=== PATIENT | female | born 1985 | race Caucasian/White ===

== ENCOUNTER 2017-11-25 17:25 | Outpatient (REF) | payer MEDICAID, SELFPAY ==
[2017-11-25 22:14] LABS: Bilirubin Negative (Negative); Blood Negative (Negative); Clarity Clear; Glucose Negative (Negative); Ketones Negative (Negative); Leukocyte Esterase Small (Negative); Nitrite Negative (Negative); Specific Gravity 1.015 (1.005-1.025)
[2017-11-25 22:24] LABS: RBC 0-2 (0-2)
[2017-11-25 22:25] LABS: Bacteria Rare HPF (Negative); C & S Indicated? No/Sq. Contamination; Casts Negative LPF (Negative); Crystals Negative HPF (Negative); Epithelial Cells Many HPF (Negative); Mucus Negative (Negative); Other Cells Moderate Yeast (Negative)
[2017-11-28 14:25] LABS: Chlamydia Result Negative; GC Result Negative
== END 2017-11-25 17:45 ==
LOC: NCHCN 17:25
PROVIDERS: PCP General Practice; Visit Provider Obstetrics & Gynecology
DX: R30.0 Dysuria (principal); N89.8 Other specified noninflammatory disorders of vagina
CPT/HCPCS: 87491; 87591; 81003; 81015

== ENCOUNTER 2017-12-13 16:37 | Emergency (ER) | payer MEDICAID, SELFPAY ==
[2017-12-13 16:43] VITALS: BP 112/76; PULSE 78; RESP 16; TEMP 36.7; O2SAT 98
[2017-12-13 17:09] LABS: Bilirubin Negative (Negative); Blood Moderate (Negative); Clarity Clear; Glucose Negative (Negative); Ketones Negative (Negative); Leukocyte Esterase Large (Negative); Nitrite Negative (Negative); Specific Gravity >= 1.030 (1.005-1.025); Urobilinogen 0.2 EU/dL (Up TO 0.2); pH 5.5 (5-8)
[2017-12-13 17:21] LABS: Epithelial Cells Few HPF (Negative); WBC >50 HPF (0-5)
[2017-12-13 17:22] LABS: Bacteria Few HPF (Negative); Casts Negative LPF (Negative); Crystals Negative HPF (Negative); Mucus Trace (Negative)
--- NOTE | 2017-12-13 17:25 | ED.GENADUL_ITS ---
Discharge Plan Disposition Patient Disposition: HOME Condition: Improving Discharge Details Chief Complaint: Urinary Clinical Impression: UTI (urinary tract infection) Primary Care Provider: Russell Holder ED Provider: Erasto Queen Home Meds and New Rx's Prescriptions: New sulfamethoxazole-trimethoprim [Bactrim DS] 800-160 mg tablet 160 mg PO BID 7 Days Qty: 14 RF: 0 phenazopyridine [Pyridium] 100 mg tablet 100 mg PO TID PRN (Reason: urinary pain) 0 Days RF: 0 fluconazole [Diflucan] 150 mg tablet 150 mg PO ONCE PRN (Reason: yeast infection) Qty: 1 RF: 0 Continue doxepin 75 MG capsule 75 mg PO HS Qty: 30 RF: 5 sertraline 100 MG tablet 150 mg PO HS RF: 0 albuterol sulfate [ProAir HFA] 8.5 GM HFA aerosol inhaler 2 puff Inhalation Q4H PRN Qty: 1 RF: 5 omeprazole 20 MG capsule,delayed release(DR/EC) 20 mg PO DAILY Qty: 90 RF: 3 topiramate 25 mg tablet 150 mg PO BID RF: 0 Discharge Instructions Instructions: Urinary Tract Infection in Women (ED) Additional Instructions: Please take medications as prescribed. As we discussed, please use the Diflucan if needed for antibiotic-induced vaginal yeast infection. Return to emerge part for fever, vomiting, or any other concerns. Routine care with Dr. Holder. Medical Decision Making Healthy 32-year-old female presents with 1 day of dysuria. She is afebrile and well-appearing with a reassuring exam. Her history and urinalysis are consistent with acute cystitis. She stable for outpatient management with oral antibiotics and Pyridium. She has had antibiotic associated yeast infections in the past and I will prescribe her a one-time dose of Diflucan to be used as needed. She understands return precautions to the ED. Lab Data Lab results reviewed: Yes I reviewed the patient's lab results. 12/13/17 17:01 Urine - Reflex from Ua Urine Culture - Pending Laboratory Tests Range/Units 12/13/17 17:01 Urine Color (Yellow) Yellow Urine Clarity Clear Urine pH (5-8) 5.5 Ur Specific Victoria (1.005-1.025) >= 1.030 H Urine Protein (Negative) mg/dL 100 H Urine Ketones (Negative) mg/dL Negative Urine Blood (Negative) Moderate H Urine Nitrite (Negative) Negative Urine Bilirubin (Negative) Negative Urine Urobilinogen (Up TO 0.2) EU/dL 0.2 Ur Leukocyte Esterase (Negative) Large H Urine RBC (0-2) 10-20 H Urine WBC (0-5) HPF >50 Ur Epithelial Cells (Negative) HPF Few Urine Crystals (Negative) HPF Negative Urine Bacteria (Negative) HPF Few Urine Casts (Negative) LPF Negative Urine Mucus (Negative) Trace Ur Culture Indicated? Yes Urine Glucose (Negative) mg/dL Negative HPI General Mode of arrival: ambulatory . Date/Time Provider Initiated Documentation: 12/13/17 16:38 . Limitations to Documentation: no limitations . Information obtained by: patient . History of Present Illness 32 year old F presents to the emergency department with the chief complaint of UTI, described as moderate, Quality is described as burning, and is localized to the pelvis. Patient started experiencing this hour(s) and it has been constant. No relieving factors improve symptom(s), No exacerbating factors reported . Patient notes no other symptoms.. HPI Narrative: 32-year-old female with a day of urinary urgency, frequency, burning sensation. No fever, chills, nausea, vomiting. Has had no vaginal discharge or bleeding she states that she had a normal menses last week Related Data Home Medications Medication Instructions Recorded Confirmed doxepin 75 mg PO HS #30 tab-cap 03/17/16 12/13/17 sertraline 150 mg PO HS tab-cap 07/09/16 12/13/17 albuterol sulfate [ProAir HFA] 2 puff INHALATION Q4H PRN #1 01/13/17 12/13/17 inhaler omeprazole 20 mg PO DAILY #90 capsule. 08/16/17 12/13/17 topiramate 25 mg tablet 150 mg PO BID tab 11/25/17 12/13/17 fluconazole [Diflucan] 150 mg PO ONCE PRN #1 tab 12/13/17 phenazopyridine [Pyridium] 100 mg PO TID PRN 0 Days tab 12/13/17 sulfamethoxazole-trimethoprim 160 mg PO BID 7 Days #14 tab 12/13/17 [Bactrim DS] Previous Rx's Medication Instructions Recorded albuterol sulfate [ProAir HFA] 2 puff INHALATION Q4H PRN #1 01/13/17 inhaler omeprazole 20 mg PO DAILY #90 capsule. 08/16/17 fluconazole [Diflucan] 150 mg PO ONCE PRN #1 tab 12/13/17 phenazopyridine [Pyridium] 100 mg PO TID PRN 0 Days tab 12/13/17 sulfamethoxazole-trimethoprim 160 mg PO BID 7 Days #14 tab 12/13/17 [Bactrim DS] Allergies Allergy/AdvReac Type Severity Reaction Status Date / Time latex Allergy Skin Rash Unverified 11/25/17 14:46 adhesive AdvReac Skin Rash Unverified 11/25/17 14:46 General Stated Complaint: Urinary REKHA: 4 Review of Systems Review of Systems 6 systems reviewed and otherwise negative PFSH Family History Mother Mental disorder Asthma Father Diabetes Mental disorder Medical History BMI 34.0-34.9,adult Depression GERD (gastroesophageal reflux disease) Restless leg syndrome Tobacco use Social History Smoking/Tobacco Use Status: Current every day Surgical History Arthroplasty of knee section (05/28/16) Ligation of fallopian tube (07/21/16) Reduction mammoplasty Female Reproductive History Menstrual control method: permanent sterilization Ab spontaneous: 2 Exam Narrative Exam Narrative: GEN: awake, alert, oriented 3. Pleasant, well groomed, interactive. HEAD: Normocephalic, atraumatic ENT: Mucous membranes moist, oropharynx unremarkable, External ear exam unremarkable EYES: PERRL, EOMI NECK: Full ROM, no RUPALI, no menigismus CHEST/RESP: Nontender, clear to auscultation bilateral, no wheeze/rhonchi/rales CARDIOVASCULAR: RRR, no murmur, rub leigha. 2+ Rad pulse bilateral ABDOMEN: Soft, minimal suprapubic tenderness without rebound or guarding, no mass. +Bowel sounds EXT: Full ROM, no edema, no rash Neuro: Grossly normal neurologic exam, conversant, interactive. Psych: Speech fluent, thoughts congruent, affect normal Course Vital Signs Temperature 36.7 C 10/02/18 16:43 Pulse 78 12/13/17 16:43 Respiratory Rate 16 12/13/17 16:43 Blood Pressure 112/76 12/13/17 16:43 Pulse Oximetry 98 12/13/17 16:43 Temperature 36.7 C 12/13/17 16:43 Temperature Source Temporal Artery Scan 12/13/17 16:43 Pulse 78 12/13/17 16:43 Respiratory Rate 16 12/13/17 16:43 Respiratory Effort 12/13/17 16:46 Blood Pressure 112/76 12/13/17 16:43 Blood Pressure Position Sitting 12/13/17 16:43 Pulse Oximetry 98 12/13/17 16:43 Oxygen Delivery Method Room Air 12/13/17 16:43 Oxygen Flow Rate 0 12/13/17 16:43 Lab/Test Results Lab/Test Results: Laboratory Tests Range/Units 12/13/17 17:01 Urine Color (Yellow) Yellow Urine Clarity Clear Urine pH (5-8) 5.5 Ur Specific Victoria (1.005-1.025) >= 1.030 H Urine Protein (Negative) mg/dL 100 H Urine Ketones (Negative) mg/dL Negative Urine Blood (Negative) Moderate H Urine Nitrite (Negative) Negative Urine Bilirubin (Negative) Negative Urine Urobilinogen (Up TO 0.2) EU/dL 0.2 Ur Leukocyte Esterase (Negative) Large H Urine Glucose (Negative) mg/dL Negative
[2017-12-13 17:29] LABS: C & S Indicated? Yes
[2017-12-13 17:35] VITALS: BP 112/76; PULSE 78; RESP 16; TEMP 36.7; O2SAT 98
== END 2017-12-13 17:43 | disposition home or self-care (01) ==
PROVIDERS: Emergency Provider Emergency Medicine; PCP General Practice
DX: N39.0 Urinary tract infection, site not specified (principal)
CPT/HCPCS: 99283; 81003; 81015; 87086

== ENCOUNTER 2018-05-06 09:58 | Emergency (ER) | payer MEDICAID, SELFPAY ==
[2018-05-06 10:15] VITALS: BP 121/61; PULSE 76; RESP 16; TEMP 36.5; O2SAT 97
--- NOTE | 2018-05-06 10:27 | W.ED.GENAD ---
Discharge Plan Disposition Patient Disposition: HOME Condition: Stable Discharge Details Chief Complaint: Nausea/Vomit/Diar Clinical Impression: Diarrhea Primary Care Provider: Russell Holder ED Provider: Erasto Queen Home Meds and New Rx's Prescriptions: New loperamide 2 mg tablet 2 mg PO Q6H PRN PRN (Reason: loose stool) Qty: 10 RF: 0 Continued fluconazole 100 mg tablet 100 mg PO DAILY PRN (Reason: postcoital UTI) Qty: 20 RF: 0 doxepin 75 MG capsule 75 mg PO HS Qty: 30 RF: 5 sertraline 100 MG tablet 150 mg PO HS RF: 0 ProAir HFA 8.5 GM HFA aerosol inhaler 2 puff Inhalation Q4H PRN Qty: 1 RF: 5 omeprazole 20 MG capsule,delayed release(DR/EC) 20 mg PO DAILY Qty: 90 RF: 3 fluconazole [Diflucan] 150 mg tablet 150 mg PO ONCE PRN (Reason: yeast infection) Qty: 1 RF: 0 topiramate 25 mg tablet 150 mg PO BID RF: 0 Discontinued sulfamethoxazole-trimethoprim 800-160 mg tablet 1 tab PO BID Qty: 6 RF: 0 No Action fluconazole 150 mg tablet 150 mg PO ONCE Qty: 1 RF: 5 Discharge Instructions Instructions: Acute Diarrhea (ED) Additional Instructions: Return for with a stool sample as we discussed. May use loperamide as prescribed as needed for loose stool. Please follow-up with Dr. Holder in clinic in 7-10 days time for recheck Medical Decision Making 33-year-old female presents from home stating that she has had days of intermittent episodes of loose watery stool with associated abdominal cramping. She will relate that she was treated with Bactrim for a urinary tract infection. It was followed by the onset of the loose and watery stools. She states she has since stopped the Bactrim and has no further signs of urinary tract infection. This morning she states she had associated mild generalized weakness. No syncope or falls She arrives afebrile with normal vital signs. Patient given fluids, referred for laboratory analysis including C. difficile screening. She has reassuring chemistries and unremarkable CBC. Unable to provide a stool sample and felt improved following parenteral fluids. Discussed with her that she can return with a outpatient laboratory stool sample to be tested. We will prescribe loperamide for her as an outpatient and she understands both follow-up and return precautions Lab Data Lab results reviewed: Yes I reviewed the patient's lab results. Laboratory Results - last 24 hr 05/06/18 05/06/18 10:35 10:35 WBC 7.97 RBC 4.43 Hgb 13.7 Hct 39.8 MCV 89.8 MCH 30.9 MCHC 34.4 RDW 12.8 Plt Count 171 MPV 11.2 H Immature Gran % 0.1 Neutrophils % 53.5 Lymphocytes % 22.7 Monocytes % 6.5 Eosinophils % 16.8 Basophils % 0.4 Absolute Neutrophils 4.26 Absolute Lymphocytes 1.81 Absolute Monocytes 0.52 Absolute Eosinophils 1.34 H Absolute Basophils 0.03 Sodium 142 Potassium 4.6 Chloride 108 H Carbon Dioxide 26.0 Anion Gap 8.0 BUN 10 Creatinine 0.93 Estimated GFR/1.73 m2 >= 60.00 Glucose 89 Calcium 8.3 L Total Bilirubin 0.6 AST 15 ALT 12 Alkaline Phosphatase 46 Total Protein 6.5 Albumin 3.7 HPI General Mode of arrival: ambulatory. Date/Time Provider Initiated Documentation: 05/06/18 10:10. Limitations to Documentation: no limitations. Information obtained by: patient. History of Present Illness 33 year old F presents to the emergency department with the chief complaint of Loose watery stool, intermittent abdominal, described as moderate, Quality is described as dull and other (Cramping), and is localized to the abdomen. Patient reports no radiation. Patient started experiencing this day(s) and it has been intermittent. No relieving factors improve symptom(s), Eating worsens symptoms . Patient notes no other symptoms.. Patient did receive the following treatments prior to arrival, none Related Data Home Medications Medication Instructions Recorded Confirmed doxepin 75 mg PO HS #30 tab-cap 03/17/16 05/06/18 sertraline 150 mg PO HS tab-cap 07/09/16 05/06/18 ProAir HFA 2 puff INHALATION Q4H PRN #1 01/13/17 12/19/17 inhaler omeprazole 20 mg PO DAILY #90 capsule. 08/16/17 05/06/18 topiramate 25 mg tablet 150 mg PO BID tab 11/25/17 05/06/18 fluconazole [Diflucan] 150 mg PO ONCE PRN #1 tab 12/13/17 05/06/18 fluconazole 100 mg tablet 100 mg PO DAILY PRN #20 tab 12/19/17 05/06/18 fluconazole 150 mg tablet 150 mg PO ONCE #1 tab 12/19/17 05/06/18 loperamide 2 mg PO Q6H PRN PRN #10 tab 05/06/18 Previous Rx's Medication Instructions Recorded ProAir HFA 2 puff INHALATION Q4H PRN #1 01/13/17 inhaler omeprazole 20 mg PO DAILY #90 capsule. 08/16/17 fluconazole [Diflucan] 150 mg PO ONCE PRN #1 tab 12/13/17 fluconazole 100 mg tablet 100 mg PO DAILY PRN #20 tab 12/19/17 fluconazole 150 mg tablet 150 mg PO ONCE #1 tab 12/19/17 loperamide 2 mg PO Q6H PRN PRN #10 tab 05/06/18 Allergies Allergy/AdvReac Type Severity Reaction Status Date / Time latex Allergy Skin Rash Unverified 05/06/18 10:21 adhesive AdvReac Skin Rash Unverified 05/06/18 10:21 General Stated Complaint: Nausea/Vomit/Diar REKHA: 3 Review of Systems Review of Systems 6 systems reviewed and otherwise - [facility] Medical History BMI 34.0-34.9,adult Depression GERD (gastroesophageal reflux disease) Restless leg syndrome Tobacco use Surgical History Arthroplasty of knee section (05/28/16) Ligation of fallopian tube (07/21/16) Reduction mammoplasty Social History household members: significant other and other details: boyfriend Immanuel/son Jose Cruz/daughter Emily housing: apartment marital status details: Long-term relationship number of children: 2 current occupational status: unemployed current occupation: Applying for disability. pets and animals: Yes pets and animals: other details: Rabbits sexually active: Yes what type of physical activity do you participate in: none Smoking and Tabacco status: Current every day alcohol intake: current details: monthly or less substance use type: does not use Seatbelt use: always additional social history: Limited transportation secondary to 's using the car for work. Walks or takes a bus everywhere she goes Female Reproductive History Menstrual control method: permanent sterilization History History 4 Para Hx # Term Pregnancies 2 Multiple births Hx # Pregnancies Ectopic pregnancies AB induced Hx Number of Living Children AB spontaneous Exam Narrative Exam Narrative: GEN: awake, alert, oriented 3. Pleasant, well groomed, interactive. HEAD: Normocephalic, atraumatic ENT: Mucous membranes dry, oropharynx unremarkable, External ear exam unremarkable EYES: PERRL, EOMI NECK: Full ROM, no RUPALI, no menigismus CHEST/RESP: Nontender, clear to auscultation bilateral, no wheeze/rhonchi/rales CARDIOVASCULAR: RRR, no murmur, rub leigha. 2+ Rad pulse bilateral ABDOMEN: Soft, nontender, no mass. +Bowel sounds EXT: Full ROM, no edema, no rash Neuro: Grossly normal neurologic exam, conversant, interactive. Psych: Speech fluent, thoughts congruent, affect normal Course Vital Signs Temperature 36.5 C 05/06/18 10:15 Pulse 76 05/06/18 10:15 Respiratory Rate 16 05/06/18 10:15 Blood Pressure 121/61 05/06/18 10:15 Pulse Oximetry 97 05/06/18 10:15 Temperature 36.5 C 05/06/18 10:15 Temperature Source Skin 05/06/18 10:15 Pulse 76 05/06/18 10:15 Respiratory Rate 16 05/06/18 10:15 Respiratory Effort Non-Labored 05/06/18 10:15 Blood Pressure 121/61 05/06/18 10:15 Blood Pressure Position Sitting 05/06/18 10:15 Pulse Oximetry 97 05/06/18 10:15 Oxygen Delivery Method Room Air 05/06/18 10:15 Oxygen Flow Rate 0 05/06/18 10:15 Pain Level 4 05/06/18 10:15
[2018-05-06] MEDS: Lactated Ringers 1,000 ML 1000 ML IV (10:37)
[2018-05-06 10:56] LABS: Abs Immature Grans 0.01 k/cumm (0.0-0.09); Absolute Basophil Count 0.03 k/cumm (0.0-0.2); Absolute Eosinophil Count 1.34 k/cumm (0.0-0.7); Absolute Lymphocyte Count 1.81 k/cumm (1.2-3.4); Absolute Monocyte Count 0.52 k/cumm (0.11-0.7); Absolute Neutrophil Count 4.26 k/cumm (1.2-6.7); Basophils % 0.4; Eosinophils % 16.8; HCT 39.8 % (36.0-46.0); HGB 13.7 g/dL (12.0-15.5); Immature Grans % 0.1; Lymphocytes % 22.7; Mean Corp. HGB Concentration 34.4 g/dL (32.0-36.0); Mean Corpuscular Hemoglobin 30.9 pg (27.0-33.0); Mean Corpuscular Volume 89.8 fL (80-95); Mean Platelet Volume 11.2 fL (8.0-11.0); Monocytes % 6.5; Neutrophils % 53.5; Platelet Count 171 x1000/uL (130-400); RBC 4.43 m/cumm (4.00-5.20); RBC Distribution Width 12.8 % (11.7-14.6); White Blood Cell Count 7.97 k/cumm (4.4-10.8)
[2018-05-06 11:08] LABS: ALT 12 U/L (12-78); AST 15 U/L (15-37); Albumin 3.7 g/dL (3.4-5.0); Alkaline Phosphatase 46 U/L (46-116); BUN 10 mg/dL (7-18); Bilirubin, Total 0.6 mg/dL (0.2-1.0); CREATININE 0.93 mg/dL (0.55-1.02); Calcium 8.3 mg/dL (8.5-10.1); Chloride 108 mmol/L (98-107); Glucose 89 mg/dL (70-100); Potassium 4.6 mmol/L (3.5-5.1); Sodium 142 mmol/L (136-145); Total Protein 6.5 g/dL (6.4-8.2)
[2018-05-06 12:52] VITALS: BP 107/77; PULSE 77; RESP 17; TEMP 36.7; O2SAT 99
== END 2018-05-06 12:54 | disposition home or self-care (01) ==
PROVIDERS: Emergency Provider Emergency Medicine; PCP General Practice
DX: R19.7 Diarrhea, unspecified (principal)
CPT/HCPCS: 36415; 80053; 96360; 99284; 85025

== ENCOUNTER 2018-05-06 15:53 | Outpatient (REF) | payer MEDICAID, SELFPAY | END 2018-05-06 16:13 | LOC: LBN 15:53 | PROVIDERS: PCP General Practice; Visit Provider Emergency Medicine | DX: R19.7 Diarrhea, unspecified (principal) | CPT/HCPCS: 87324 ==

== ENCOUNTER 2018-08-10 12:08 | Emergency (ER) | payer MEDICAID, SELFPAY ==
--- NOTE | 2018-08-10 12:12 | W.ED.GENAD ---
Discharge Plan Disposition Patient Disposition: HOME Condition: Fair Discharge Details Chief Complaint: Nk/Back Pain Clinical Impression: Acute lumbar back pain, Muscle spasm Primary Care Provider: Russell Holder ED Provider: Giselle Torres Home Meds and New Rx's Prescriptions: New ibuprofen 600 mg tablet 600 mg PO QID PRN (Reason: pain) Qty: 20 RF: 0 acetaminophen [Tylenol Extra Strength] 500 mg tablet 500 mg PO Q4H PRN (Reason: pain) Qty: 20 RF: 0 cyclobenzaprine 10 mg tablet 10 mg PO TID PRN (Reason: muscle spasm) Qty: 10 RF: 0 diclofenac sodium [Voltaren] 1 % gel 2 gm TP QID PRN (Reason: pain) Qty: 100 RF: 0 Continued doxepin 75 MG capsule 75 mg PO HS Qty: 30 RF: 5 sertraline 100 MG tablet 150 mg PO HS RF: 0 albuterol sulfate [ProAir HFA] 8.5 GM HFA aerosol inhaler 2 puff Inhalation Q4H PRN Qty: 1 RF: 5 omeprazole 20 MG capsule,delayed release(DR/EC) 20 mg PO DAILY Qty: 90 RF: 3 topiramate 25 mg tablet 150 mg PO BID RF: 0 Discharge Instructions Instructions: Low Back Strain (ED), Muscle Spasm (ED), Lower Back Exercises (ED) Additional Instructions: Encourage hydration. Tylenol and/or ibuprofen as needed for discomfort. You may use the Voltaren gel as prescribed to help with pain. Flexeril as prescribed to help with muscle spasm. Take this medication only as prescribed, do not drive while taking this medication. Encourage stretching and frequent ambulation. Referral for physical therapy is attached. Also attached are lower back exercises which may be of benefit. If you develop change in bowel or bladder habits, fever/chills, increased pain, weakness or other new/worsening symptoms please seek care urgently once again. Please follow-up with primary care in 1 week for reevaluation. Stand Alone Forms: Physical Therapy Referral Referrals: Russell Holder MD [Primary Care Provider] - Discharge Data Discharge Date/Time-TO BE ENTERED AT DEPARTURE: 08/10/18 13:18 Medical Decision Making Patient 33-year-old female presenting today with chief complaint of lower back pain. Reports that back pain began 2 days ago. 3 days ago, she was doing heavy lifting. Did not have any trauma. Denies any fevers or chills. No midline tenderness was endorsing paraspinal tenderness radiating laterally. Reports the pain is equal on the right and left sides. No rash. No midline tenderness step-off deformity. No saddle paresthesias. Denies change in bowel or bladder habits. Patient has good strength equal bilaterally in bilateral lower extremities. Advised likely muscle strain associated with her heavy lifting. She did have palpable spasm on the right side more than the left. Plan to treat with Tylenol, ibuprofen, topical patches and muscle relaxer. Patient did not drive here. Patient is allergic to adhesive. Instea, will prescribed Voltaren gel. Encourage range of motion, will refer to physical therapy. Advised heat or ice to affected area. We discussed activities that she should avoid including heavy lifting. She was given strict return precautions. Advise follow-up with primary care next week for reevaluation. All of her questions and concerns were addressed and she is in agreement this plan. HPI General Mode of arrival: ambulatory. Date/Time Provider Initiated Documentation: 08/10/18 12:12. Limitations to Documentation: no limitations. Information obtained by: patient and RN notes reviewed. History of Present Illness 33 year old F presents to the emergency department with the chief complaint of lower back pain, described as severe, with intensity rated at 10. Quality is described as aching, and is localized to the back. Patient reports no radiation. Patient started experiencing this day(s) (3) and it has been constant. Immobilization improves symptom(s), Movement worsens symptoms . Patient notes no other symptoms.; denies chest pain, cough, diaphoresis, fever/chills, headaches, loss of appetite, malaise, nausea/vomiting, rash, shortness of breath and weakness. Patient did receive the following treatments prior to arrival, other (Tylenol this AM) Related Data Home Medications Medication Instructions Recorded Confirmed doxepin 75 mg PO HS #30 tab-cap 03/17/16 08/10/18 sertraline 150 mg PO HS tab-cap 07/09/16 08/10/18 albuterol sulfate [ProAir HFA] 2 puff INHALATION Q4H PRN #1 01/13/17 08/10/18 inhaler omeprazole 20 mg PO DAILY #90 capsule. 08/16/17 08/10/18 topiramate 25 mg tablet 150 mg PO BID tab 11/25/17 08/10/18 acetaminophen [Tylenol Extra 500 mg PO Q4H PRN #20 tab 08/10/18 Strength] cyclobenzaprine 10 mg PO TID PRN #10 tab 08/10/18 diclofenac sodium [Voltaren] 2 gm TP QID PRN #100 gm 08/10/18 ibuprofen 600 mg PO QID PRN #20 tab 08/10/18 Previous Rx's Medication Instructions Recorded albuterol sulfate [ProAir HFA] 2 puff INHALATION Q4H PRN #1 01/13/17 inhaler omeprazole 20 mg PO DAILY #90 capsule. 08/16/17 acetaminophen [Tylenol Extra 500 mg PO Q4H PRN #20 tab 08/10/18 Strength] cyclobenzaprine 10 mg PO TID PRN #10 tab 08/10/18 diclofenac sodium [Voltaren] 2 gm TP QID PRN #100 gm 08/10/18 ibuprofen 600 mg PO QID PRN #20 tab 08/10/18 Allergies Allergy/AdvReac Type Severity Reaction Status Date / Time latex Allergy Skin Rash Unverified 08/10/18 12:18 adhesive AdvReac Skin Rash Unverified 08/10/18 12:18 General REKHA: 3 Review of Systems Constitutional Reports as per HPI, Denies chills, Denies fever(s), Denies headache(s) and Denies weakness ENT Denies headache(s) and Denies neck pain Cardiovascular Reports as per HPI Respiratory Reports as per HPI and Denies cough Gastrointestinal Reports as per HPI, Denies melena, Denies change in bowel habits and Denies fecal incontinence Genitourinary Denies urinary incontinence and Denies urinary hesitancy Musculoskeletal Reports as per HPI, Reports abnormal gait (antalgic gait), Reports back pain, Denies myalgias, Denies deformity, Denies arthralgias, Denies joint swelling, Denies limited range of motion, Reports muscle cramps (lumbar spine), Denies muscle weakness, Denies neck pain, Denies numbness, Denies radiating pain into limb, Reports stiffness and Denies tingling Integumentary/Breasts Reports as per HPI, Denies rash and Denies wounds Neurologic Reports as per HPI, Reports abnormal gait (antalgic gait), Denies headache(s), Denies numbness, Denies tingling, Denies paresthesias and Denies weakness [facility] Medical History BMI 34.0-34.9,adult Depression GERD (gastroesophageal reflux disease) Restless leg syndrome Tobacco use Surgical History Arthroplasty of knee section (05/28/16) Ligation of fallopian tube (07/21/16) Reduction mammoplasty Social History Smoking/Tobacco Use Status: Current every day Alcohol Intake: former Details: monthly or less Drug use: Occasionally Substance use type: marijuana Household members: significant other and other Details: boyfriend Immanuel/son Jose Cruz/daughter Emily Housing: apartment Number of Children: 2 current occupation: Applying for disability. Pets and animals: Yes Pets and animals: other Details: Rabbits Sexually active: Yes What type of physical activity do you participate in: none Seatbelt use: always Do you feel safe at home: Yes Do you feel safe in your relationship?: Yes Additional Social history: Limited transportation secondary to 's using the car for work. Walks or takes a bus everywhere she goes Female Reproductive History Menstrual control method: permanent sterilization History History 4 Para Hx # Term Pregnancies 2 Multiple births Hx # Pregnancies Ectopic pregnancies AB induced Hx Number of Living Children AB spontaneous Exam Const General: cooperative, healthy appearing, comfortable, no acute distress, well developed and well groomed Nutritional Appearance: average body habitus and well nourished Orientation: alert and awake Resp Effort & Inspection: normal respiratory effort, able to speak in complete sentences and no respiratory distress Auscultation: clear to auscultation bilaterally Cardio Rate: regular rate Rhythm: regular rhythm Heart Sounds: S1 normal and S2 normal Back/Spine/Pelvis Back: no CVA tenderness Cervical Spine: normal cervical lordosis and cervical ROM normal Thoracic/Lumbar Spine: thoraco-lumbar ROM normal (mild pain with extremes of rotation), straight leg raise negative bilaterally, paraspinal tenderness (bilaterally along length of lumbar spine, tight on right side), No thoracic spinal tenderness and No lumbar spinal tenderness (no midline pain or step off palpated) Pelvis: no pain with anterior-posterior compression Sacroiliac joints: bilaterally nontender Skin General skin exam: no rashes or lesions noted Lesions: no lesions Rashes: no rashes Trauma: no lacerations or abrasions Neuro General: alert and awake Cognition: normal cognition Speech: speech normal Gait: antalgic Motor: muscle tone normal throughout, strength 5/5 throughout, no movement abnormalities noted and no fasciculations Sensory Exam: no sensory deficits noted (no saddle paresthesias) DTR's: Rt Patellar: 2+, Lt Patellar: 2+, Rt Ankle: 2+ and Lt Ankle: 2+ Extrem General: normal to inspection, full ROM, normal capillary refill, no joint enlargement, no pedal edema, no calf tenderness and abnormal gait (antalgic) Psych Appearance: grossly normal and well kempt Mental Status: mental status grossly normal Speech and Movement: speech and movement normal
[2018-08-10 12:15] VITALS: BP 109/61; PULSE 87; RESP 20; TEMP 36.7; O2SAT 99
--- NOTE | 2018-08-10 12:56 | ED.GENADUL_ITS ---
Discharge Plan Disposition Patient Disposition: HOME Condition: Fair Discharge Details Chief Complaint: Nk/Back Pain Clinical Impression: Acute lumbar back pain, Muscle spasm Primary Care Provider: Russell Holder ED Provider: Giselle Torres Home Meds and New Rx's Prescriptions: New ibuprofen 600 mg tablet 600 mg PO QID PRN (Reason: pain) Qty: 20 RF: 0 acetaminophen [Tylenol Extra Strength] 500 mg tablet 500 mg PO Q4H PRN (Reason: pain) Qty: 20 RF: 0 cyclobenzaprine 10 mg tablet 10 mg PO TID PRN (Reason: muscle spasm) Qty: 10 RF: 0 diclofenac sodium [Voltaren] 1 % gel 2 gm TP QID PRN (Reason: pain) Qty: 100 RF: 0 Continued doxepin 75 MG capsule 75 mg PO HS Qty: 30 RF: 5 sertraline 100 MG tablet 150 mg PO HS RF: 0 albuterol sulfate [ProAir HFA] 8.5 GM HFA aerosol inhaler 2 puff Inhalation Q4H PRN Qty: 1 RF: 5 omeprazole 20 MG capsule,delayed release(DR/EC) 20 mg PO DAILY Qty: 90 RF: 3 topiramate 25 mg tablet 150 mg PO BID RF: 0 Discharge Instructions Instructions: Low Back Strain (ED), Muscle Spasm (ED), Lower Back Exercises (ED) Additional Instructions: Encourage hydration. Tylenol and/or ibuprofen as needed for discomfort. You may use the Voltaren gel as prescribed to help with pain. Flexeril as prescribed to help with muscle spasm. Take this medication only as prescribed, do not drive while taking this medication. Encourage stretching and frequent ambulation. Referral for physical therapy is attached. Also attached are lower back exercises which may be of benefit. If you develop change in bowel or bladder habits, fever/chills, increased pain, weakness or other new/worsening symptoms please seek care urgently once again. Please follow-up with primary care in 1 week for reevaluation. Stand Alone Forms: Physical Therapy Referral Referrals: Russell Holder MD [Primary Care Provider] - Discharge Data Discharge Date/Time-TO BE ENTERED AT DEPARTURE: 08/10/18 13:18 Medical Decision Making Patient 33-year-old female presenting today with chief complaint of lower back pain. Reports that back pain began 2 days ago. 3 days ago, she was doing heavy lifting. Did not have any trauma. Denies any fevers or chills. No midline tenderness was endorsing paraspinal tenderness radiating laterally. Reports the pain is equal on the right and left sides. No rash. No midline tenderness step-off deformity. No saddle paresthesias. Denies change in bowel or bladder habits. Patient has good strength equal bilaterally in bilateral lower extremities. Advised likely muscle strain associated with her heavy lifting. She did have palpable spasm on the right side more than the left. Plan to treat with Tylenol, ibuprofen, topical patches and muscle relaxer. Patient did not drive here. Patient is allergic to adhesive. Instea, will prescribed Voltaren gel. Encourage range of motion, will refer to physical therapy. Advised heat or ice to affected area. We discussed activities that she should avoid including heavy lifting. She was given strict return precautions. Advise follow-up with primary care next week for reevaluation. All of her questions and concerns were addressed and she is in agreement this plan. HPI General Mode of arrival: ambulatory . Date/Time Provider Initiated Documentation: 08/10/18 12:12 . Limitations to Documentation: no limitations . Information obtained by: patient and RN notes reviewed . History of Present Illness 33 year old F presents to the emergency department with the chief complaint of lower back pain, described as severe, with intensity rated at 1 0. Quality is described as aching, and is localized to the back. Patient reports no radiation. Patient started experiencing this day(s) (3) and it has been constant. Immobilization improves symptom(s), Movement worsens symptoms . Patient notes no other symptoms.; denies chest pain, cough, diaphoresis, fever/chills, headaches, loss of appetite, malaise, nause a/vomiting, rash, shortness of breath and weakness. Patient did receive the following treatments prior to arrival, other (Tylenol this AM) Related Data Home Medications Medication Instructions Recorded Confirmed doxepin 75 mg PO HS #30 tab-cap 03/17/16 08/10/18 sertraline 150 mg PO HS tab-cap 07/09/16 08/10/18 albuterol sulfate [ProAir HFA] 2 puff INHALATION Q4H PRN #1 01/13/17 08/10/18 inhaler omeprazole 20 mg PO DAILY #90 capsule. 08/16/17 08/10/18 topiramate 25 mg tablet 150 mg PO BID tab 11/25/17 08/10/18 acetaminophen [Tylenol Extra 500 mg PO Q4H PRN #20 tab 08/10/18 Strength] cyclobenzaprine 10 mg PO TID PRN #10 tab 08/10/18 diclofenac sodium [Voltaren] 2 gm TP QID PRN #100 gm 08/10/18 ibuprofen 600 mg PO QID PRN #20 tab 08/10/18 Previous Rx's Medication Instructions Recorded albuterol sulfate [ProAir HFA] 2 puff INHALATION Q4H PRN #1 01/13/17 inhaler omeprazole 20 mg PO DAILY #90 capsule. 08/16/17 acetaminophen [Tylenol Extra 500 mg PO Q4H PRN #20 tab 08/10/18 Strength] cyclobenzaprine 10 mg PO TID PRN #10 tab 08/10/18 diclofenac sodium [Voltaren] 2 gm TP QID PRN #100 gm 08/10/18 ibuprofen 600 mg PO QID PRN #20 tab 08/10/18 Allergies Allergy/AdvReac Type Severity Reaction Status Date / Time latex Allergy Skin Rash Unverified 08/10/18 12:18 adhesive AdvReac Skin Rash Unverified 08/10/18 12:18 General REKHA: 3 Review of Systems Constitutional Reports as per HPI, Denies chills, Denies fever(s), Denies headache(s) and Denies weakness ENT Denies headache(s) and Denies neck pain Cardiovascular Reports as per HPI Respiratory Reports as per HPI and Denies cough Gastrointestinal Reports as per HPI, Denies melena, Denies change in bowel habits and Denies fecal incontinence Genitourinary Denies urinary incontinence and Denies urinary hesitancy Musculoskeletal Reports as per HPI, Reports abnormal gait (antalgic gait), Reports back pain, Denies myalgias, Denies deformity, Denies arthralgias, Denies joint swelling, Denies limited range of motion, Reports muscle cramps (lumbar spine), Denies muscle weakness, Denies neck pain, Denies numbness, Denies radiating pain into limb, Reports stiffness and Denies tingling Integumentary/Breasts Reports as per HPI, Denies rash and Denies wounds Neurologic Reports as per HPI, Reports abnormal gait (antalgic gait), Denies headache(s), Denies numbness, Denies tingling, Denies paresthesias and Denies weakness [facility] Medical History BMI 34.0-34.9,adult Depression GERD (gastroesophageal reflux disease) Restless leg syndrome Tobacco use Surgical History Arthroplasty of knee section (05/28/16) Ligation of fallopian tube (07/21/16) Reduction mammoplasty Social History Smoking/Tobacco Use Status: Current every day Alcohol Intake: former Details: monthly or less Drug use: Occasionally Substance use type: marijuana Household members: significant other and other Details: boyfriend Immanuel/son Jose Cruz/daughter Emily Housing: apartment Number of Children: 2 current occupation: Applying for disability. Pets and animals: Yes Pets and animals: other Details: Rabbits Sexually active: Yes What type of physical activity do you participate in: none Seatbelt use: always Do you feel safe at home: Yes Do you feel safe in your relationship?: Yes Additional Social history: Limited transportation secondary to 's using the car for work. Walks or takes a bus everywhere she goes Female Reproductive History Menstrual control method: permanent sterilization History History 4 Para Hx # Term Pregnancies 2 Multiple births Hx # Pregnancies Ectopic pregnancies AB induced Hx Number of Living Children AB spontaneous Exam Const General: cooperative, healthy appearing, comfortable, no acute distress, well developed and well groomed Nutritional Appearance: average body habitus and well nourished Orientation: alert and awake Resp Effort & Inspection: normal respiratory effort, able to speak in complete sentences and no respiratory distress Auscultation: clear to auscultation bilaterally Cardio Rate: regular rate Rhythm: regular rhythm Heart Sounds: S1 normal and S2 normal Back/Spine/Pelvis Back: no CVA tenderness Cervical Spine: normal cervical lordosis and cervical ROM normal Thoracic/Lumbar Spine: thoraco-lumbar ROM normal (mild pain with extremes of rotation), straight leg raise negative bilaterally, paraspinal tenderness (bilaterally along length of lumbar spine, tight on right side), No thoracic spi nal tenderness and No lumbar spinal tenderness (no midline pain or step off palpated) Pelvis: no pain with anterior-posterior compression Sacroiliac joints: bilaterally nontender Skin General skin exam: no rashes or lesions noted Lesions: no lesions Rashes: no rashes Trauma: no lacerations or abrasions Neuro General: alert and awake Cognition: normal cognition Speech: speech normal Gait: antalgic Motor: muscle tone normal throughout, strength 5/5 throughout, no movement abnormalities noted and no fasciculations Sensory Exam: no sensory deficits noted (no saddle paresthesias) DTR's: Rt Patellar: 2+, Lt Patellar: 2+, Rt Ankle: 2+ and Lt Ankle: 2+ Extrem General: normal to inspection, full ROM, normal capillary refill, no joint enlargement, no pedal edema, no calf tenderness and abnormal gait (antalgic) Psych Appearance: grossly normal and well kempt Mental Status: mental status grossly normal Speech and Movement: speech and movement normal
[2018-08-10] MEDS: Acetaminophen 500 MG TAB 1000 MG PO (13:00)
[2018-08-10] MEDS: Cyclobenzaprine 10 MG TAB PO (13:00)
[2018-08-10 13:01] VITALS: BP 109/61; PULSE 87; RESP 20; TEMP 36.7; O2SAT 99
[2018-08-10] MEDS: Ibuprofen 600 MG TAB PO (13:01)
== END 2018-08-10 13:18 | disposition home or self-care (01) ==
PROVIDERS: Emergency Provider Physician Assistant; PCP General Practice
DX: M54.5 Low back pain (principal); M62.830 Muscle spasm of back
CPT/HCPCS: 99283

== ENCOUNTER 2019-01-13 09:10 | Outpatient (CLI) | payer MEDICAID, SELFPAY ==
[2019-01-13 10:13] LABS: ALT 14 U/L (14-59); AST 9 U/L (15-37); Albumin 4.3 g/dL (3.4-5.0); Alkaline Phosphatase 42 U/L (46-116); BUN 13 mg/dL (7-18); Bilirubin, Total 0.4 mg/dL (0.2-1.0); CREATININE 1.01 mg/dL (0.55-1.02); Calcium 9.3 mg/dL (8.5-10.1); Chloride 108 mmol/L (98-107); FREE T4 0.76 ng/dL (0.76-1.46); Glucose 95 mg/dL (70-100); Potassium 3.9 mmol/L (3.5-5.1); Sodium 142 mmol/L (136-145); TSH 1.71 uIU/mL (0.36-3.74); Total Protein 6.7 g/dL (6.4-8.2)
[2019-01-13 11:15] LABS: Abs Immature Grans 0.01 k/cumm (0.0-0.09); Absolute Basophil Count 0.02 k/cumm (0.0-0.2); Absolute Eosinophil Count 0.83 k/cumm (0.0-0.7); Absolute Lymphocyte Count 1.74 k/cumm (1.2-3.4); Absolute Monocyte Count 0.52 k/cumm (0.11-0.7); Absolute Neutrophil Count 5.05 k/cumm (1.2-6.7); Basophils % 0.2; Eosinophils % 10.2; HCT 40.4 % (36.0-46.0); HGB 14.2 g/dL (12.0-15.5); Immature Grans % 0.1; Lymphocytes % 21.3; Mean Corp. HGB Concentration 35.1 g/dL (32.0-36.0); Mean Corpuscular Hemoglobin 31.7 pg (27.0-33.0); Mean Corpuscular Volume 90.2 fL (80-95); Mean Platelet Volume 12.4 fL (8.0-11.0); Monocytes % 6.4; Neutrophils % 61.8; Platelet Count 187 x1000/uL (130-400); RBC 4.48 m/cumm (4.00-5.20); White Blood Cell Count 8.17 k/cumm (4.4-10.8)
[2019-01-14 16:34] LABS: T3,Free 2.4 pg/ml (2.8-5.3)
[2019-01-15 06:34] LABS: Vitamin D 25 Total 18.9 ng/ml (30-100)
== END 2019-01-13 09:30 ==
PROVIDERS: PCP General Practice; Visit Provider Nurse Practitioner Family
DX: F32.89 Other specified depressive episodes (principal); Z79.899 Other long term (current) drug therapy; R53.81 Other malaise; Z13.0 Encounter for screening for diseases of the blood and blood-forming organs and certain disorders involving the immune mechanism; Z13.21 Encounter for screening for nutritional disorder
CPT/HCPCS: 36415; 80053; 82306; 84439; 84443; 84481; 85025

== ENCOUNTER 2019-05-07 09:21 | Outpatient (CLI) | payer MEDICAID, SELFPAY ==
[2019-05-07 10:44] LABS: Vitamin D 25 Total 11.9 ng/ml (30-100)
[2019-05-07 16:14] LABS: ESR 2 mm/hr (0-20)
[2019-05-08 16:08] LABS: Lyme Ab w Rflx to Lyme Confirm Negative (Negative); Rheumatoid Factor <8.6 IU/mL (<12.0)
[2019-05-08 16:09] LABS: ANA Interpretation Negative (Negative)
[2019-05-09 14:43] LABS: IgA 65 mg/dL (85-499); Interpretation (See Note); Tissue Transglutaminase IgA <1.2 U/mL (<4.0)
== END 2019-05-07 09:41 ==
PROVIDERS: PCP Nurse Practitioner; Visit Provider Nurse Practitioner
DX: M25.40 Effusion, unspecified joint (principal); M25.531 Pain in right wrist; M79.641 Pain in right hand; R10.9 Unspecified abdominal pain; R19.7 Diarrhea, unspecified; E55.9 Vitamin D deficiency, unspecified; M25.532 Pain in left wrist; M79.642 Pain in left hand
CPT/HCPCS: 36415; 82306; 82784; 83516; 85652; 86038; 86431; 86618

== ENCOUNTER 2019-08-15 17:56 | Outpatient (REF) | payer MEDICAID, SELFPAY | END 2019-08-15 18:16 | LOC: LBN 17:56 | PROVIDERS: PCP Nurse Practitioner; Visit Provider Obstetrics & Gynecology Gynecology | DX: R30.0 Dysuria (principal) | CPT/HCPCS: 87086 ==

== ENCOUNTER 2019-11-05 02:15 | Outpatient (CLI) | payer MEDICAID, SELFPAY ==
[2019-11-05 10:25] LABS: HCT 38.4 % (36.0-46.0); HGB 13.1 g/dL (11.2-15.7); MCH 31.7 pg (27.0-33.0); MCHC 34.1 % (32.0-36.0); MPV 12.1 fL (8.0-11.0); Platelet Count 149 10^3/uL (130-400); RBC 4.13 10^6/uL (3.93-5.22); RDW 12.8 % (11.7-14.6); RDW-SD 43.7 fL; WBC 6.34 10^3/uL (4.4-10.8)
[2019-11-05 10:52] LABS: ALT 12 U/L (14-59); AST 9 U/L (15-37); Albumin 4.1 g/dL (3.4-5.0); Alkaline Phosphatase 36 U/L (46-116); Anion Gap 10.3 mmol/L (3-11); BUN 10 mg/dL (7-18); Bilirubin, Total 0.3 mg/dL (0.2-1.0); C-Reactive Protein 0.13 mg/dL (0.0-0.3); CO2 24.7 mmol/L (21.0-32.0); CREATININE 0.87 mg/dL (0.55-1.02); Calcium 8.8 mg/dL (8.5-10.1); Chloride 107 mmol/L (98-107); Glucose 86 mg/dL (74-106); Sodium 142 mmol/L (136-145); TSH (W/Ref FT4) 2.76 uIU/mL (0.36-3.74); Total Protein 6.3 g/dL (6.4-8.2)
[2019-11-05 11:04] LABS: Vitamin D 25 Total 51.9 ng/ml (30-100)
[2019-11-05 12:42] LABS: ESR 7 mm/hr (0-20)
[2019-11-05 16:14] LABS: T3,Free 2.5 pg/mL (2.8-5.3)
[2019-11-06 17:01] LABS: T3, Total 122 ng/dL (97-169)
== END 2019-11-05 02:35 ==
PROVIDERS: PCP Nurse Practitioner; Visit Provider Nurse Practitioner
DX: I10 Essential (primary) hypertension; R53.83 Other fatigue; R79.89 Other specified abnormal findings of blood chemistry; M25.551 Pain in right hip; G25.81 Restless legs syndrome; G47.39 Other sleep apnea; E55.9 Vitamin D deficiency, unspecified
CPT/HCPCS: 36415; 80053; 82306; 85027; 85652; 84443; 84480; 84481; 86140

== ENCOUNTER 2020-01-28 02:58 | Outpatient (CLI) | payer MEDICAID, SELFPAY ==
[2020-01-28 17:03] LABS: ESR 5 mm/hr (0-20)
[2020-01-28 17:45] LABS: C-Reactive Protein 0.08 mg/dL (0.0-0.3)
[2020-01-28 17:49] LABS: Creatine Kinase 88 U/L (26-192)
== END 2020-01-28 03:18 ==
PROVIDERS: PCP Nurse Practitioner; Visit Provider Family Medicine
DX: R53.83 Other fatigue (principal)
CPT/HCPCS: 36415; 82550; 85652; 86140

== ENCOUNTER 2020-02-28 01:42 | Outpatient (CLI) | payer MEDICAID, SELFPAY ==
[2020-02-28 17:56] LABS: Folate 4.2 ng/mL (8.6-20.0)
[2020-02-28 18:11] LABS: Vitamin B12 177 pg/mL (193-986)
[2020-03-03 11:55] LABS: Lyme Ab w Rflx to Lyme Confirm Negative (Negative)
[2020-03-03 19:03] LABS: Anaplasma phagocytophilum Negative (Negative); B. miyamotoi PCR Negative (Negative); Babesia divergens/MO-1 Negative (Negative); Babesia duncani Negative (Negative); Babesia microti Negative (Negative); Ehrlichia chaffeensis Negative (Negative); Ehrlichia ewingii/canis Negative (Negative); Ehrlichia muris eauclairensis Negative (Negative)
== END 2020-02-28 02:02 ==
PROVIDERS: PCP Nurse Practitioner; Visit Provider Nurse Practitioner
DX: R29.898 Other symptoms and signs involving the musculoskeletal system (principal); M62.81 Muscle weakness (generalized); M79.18 Myalgia, other site
CPT/HCPCS: 36415; 87798; 82607; 82746; 86618

== ENCOUNTER 2020-05-14 01:12 | Outpatient (CLI) | payer MEDICAID, SELFPAY ==
--- NOTE | 2020-05-14 11:22 | DI.US_ITS ---
APPROVED REPORT EXAM: Comprehensive 2D, Doppler, and color-flow Echocardiogram Patient Location: Out-Patient Sponge Diver: Francia Lyle RDCS (AE) Indications: Lightheaded with smoking or exertion Other Information Study Quality: Fair. Technically limited study due to body habitus,smoker. Conclusion Left Ventricle : The left ventricle is normal size. The left ventricular systolic function is normal. The left ventricular ejection fraction is within the normal range. There is normal left ventricular wall thickness. There is normal LV segmental wall motion. The left ventricular diastolic function is normal. LVEF is 60-65%. Right Ventricle : The right ventricle is normal size. The right ventricular systolic function is norm al. The RVSP is 14.8 mmHg. Atria : The left atrium size is normal. The right atrium size is normal. Valves: There are no hemodynamically significant valvular lesions. Great Vessels : The aortic root is normal in size. Ascending aorta is not well visualized. Aortic arc h is normal in caliber. IVC is normal in size and collapses >50% with inspiration. Please see remainder of study for further details. Wall motion Left Ventricle The left ventricle is normal size. The left ventricular systolic function is normal. The left ventric ular ejection fraction is within the normal range. There is normal left ventricular wall thickness. T here is normal LV segmental wall motion. The left ventricular diastolic function is normal. There is no ventricular septal defect visualized. LVEF is 60-65%. Right Ventricle The right ventricle is normal size. The right ventricular systolic function is normal. The RVSP is 14 .8 mmHg. Atria The left atrium size is normal. The right atrium size is normal. The interatrial septum is intact wit h no evidence for an atrial septal defect. Aortic Valve The aortic valve is normal in structure. Aortic valve is probably trileaflet. There is no aortic valv ular stenosis. No aortic regurgitation is present. Mitral Valve The mitral valve is normal in structure. No evidence of mitral valve stenosis. Trace mitral regurgita tion. Tricuspid Valve The tricuspid valve is normal in structure. There is no tricuspid valve stenosis. Trace tricuspid reg urgitation. Pulmonic Valve Pulmonic valve is not well visualized. There is no pulmonic valvular stenosis. There is no pulmonic v alvular regurgitation. Great Vessels The aortic root is normal in size. Ascending aorta is not well visualized. Aortic arch is normal in c aliber. IVC is normal in size and collapses >50% with inspiration. Pericardium There is no pericardial effusion. 2D Dimensions IVSD d PLAX 0.82 cm F: 0.6-1.0 LV Vol A2C d MOD 103.7 mL LVPW d PLAX 0.82 cm F: 0.6 - 1.0 LV Vol A4C d MOD 90.6 mL LVID d PLAX 5.12 cm F: 3.8 - 5.2 LA vol/ BSA A2C s A-L 28.0 mL/m2 LVDs 3.50 cm F: 2.2 - 3.5 LA vol/ BSA A4C s A-L 16.1 mL/m2 Ao Root d 2.74 cm F: 2.7 - 3.3 LA Vol/ BSA Biplane s A-L 21.6 mL/m2 RA Area A4C 11.36 cm2 LA Area A4C s MOD 12.24 cm2 RA Vol/ BSA A4C s A-L 17.3 mL/m2 LA Area A2C s MOD 16.37 cm2 LV EF Teichholz 58.1 % LV EF A4C MOD 62.1 % LVEF (Trotter's) 60.70 % F: 54 - 74 LV EF A2C MOD 61.6 % LV Volume 77.07 mL F: 46 - 106 LV EF Biplane MOD 60.7 % LV Volume Index 45.33 mL/m2 F: 29 - 61 SV 58.99 mL LV Vol Biplane MOD 97.2 mL SV Index 34.58 mL/m2 FS 30.80 % M-Mode TAPSE 2.29 cm (M/F) >1.7 LV Diastology MV E' medial 0.096 (>0.07 m/s) E/A Ratio 2.2 LV E/e MED 7.00 (<14) MV E Vmax 0.67 (0.4-1.3 m/s) MV E' lateral 0.177 (>0.1 m/s) MV A Vmax 0.30 (0.4-1.3 m/s) LV E/e LAT 3.75 (<14) MV E/A Ratio 2.00 MV E/E' medial 7.02 MV E/E' lateral 3.80 Aortic Valve LVOT Area 3.43 cm2 AoV Area Vmax 2.59 cm2 LVOT Vmax 0.86 m/s AoV Area/ BSA (Vmax) 1.52 cm2/m2 LVOT Mean Raymond. 0.58 m/s LAUREN Mean Raymond. 2.71 cm2 LVOT Peak Grad 3.0 mmHg LAUREN Mean Raymond. Index 1.59 cm2/m2 LVOT Mean Grad 1.6 mmHg LVOT VTI 0.196 m LVOT Diam s 2.05 cm AoV Vmax 1.14 m/s Velocity Ratio 0.75 AoV Mean Raymond. 0.74 m/s AoV Peak Grad 5.2 mmHg LVOT SV 67.40 mL AoV Mean Grad 2.5 mmHg AoV VTI 0.205 m AoV Area VTI 3.29 cm2 AoV Area/ BSA (VTI) 1.93 cm/m2 Mitral Valve MV DT 205 (160-240 msec) MV PHT 59 msec MV Area PHT 3.70 cm2 Pulmonary Valve PV Vmax 0.69 (0.5-1.5 m/s) RVOT Peak Gr. 0.93 mmHg PV Peak Grad 1.9 mmHg RVOT Mean Gr. 0.60 mmHg PV Mean Grad 1.3 mmHg RVOT VTI 0.115 m PV VTI 0.159 m RVOT Vmax 0.48 m/s Tricuspid Valve TR Peak Grad 11.2 mmHg TR Vmax 1.67 m/s RA Pressure 3.00 mmHg RVSP (TR) 14.8 mmHg
== END 2020-05-14 01:32 ==
PROVIDERS: PCP Nurse Practitioner; Visit Provider Nurse Practitioner
DX: R42 Dizziness and giddiness (principal)
CPT/HCPCS: 93306

== ENCOUNTER 2020-06-25 03:29 | Outpatient (CLI) | payer MEDICAID, SELFPAY ==
[2020-06-25 16:31] LABS: HCT 38.5 % (36.0-46.0); MCH 31.6 pg (27.0-33.0); MCHC 33.8 % (32.0-36.0); MCV 93.7 fL (80-95); Platelet Count 153 10^3/uL (130-400); RBC 4.11 10^6/uL (3.93-5.22); RDW 12.5 % (11.7-14.6); RDW-SD 43.2 fL; WBC 6.92 10^3/uL (4.4-10.8)
[2020-06-25 18:10] LABS: ALT 16 U/L (14-59); AST 7 U/L (15-37); Albumin 4.3 g/dL (3.4-5.0); Alkaline Phosphatase 39 U/L (46-116); Anion Gap 9.6 mmol/L (3-11); BUN 13 mg/dL (7-18); Bilirubin, Total 0.4 mg/dL (0.2-1.0); CO2 24.4 mmol/L (21.0-32.0); Calcium 8.8 mg/dL (8.5-10.1); Chloride 108 mmol/L (98-107); Folate 4.2 ng/mL (8.6-20.0); Glucose 72 mg/dL (74-106); Potassium 3.6 mmol/L (3.5-5.1); Sodium 142 mmol/L (136-145); TSH (W/Ref FT4) 1.54 uIU/mL (0.36-3.74); Total Protein 6.8 g/dL (6.4-8.2); Vitamin B12 822 pg/mL (193-986)
== END 2020-06-25 03:30 | disposition home or self-care (01) ==
LOC: LBO 03:29
PROVIDERS: PCP Nurse Practitioner; Visit Provider Nurse Practitioner
DX: I10 Essential (primary) hypertension (principal); E53.8 Deficiency of other specified B group vitamins; R42 Dizziness and giddiness; R53.83 Other fatigue; R79.89 Other specified abnormal findings of blood chemistry
CPT/HCPCS: 36415; 80053; 85027; 82607; 82746; 84443

== ENCOUNTER 2020-11-05 02:58 | Outpatient (CLI) | payer MEDICAID, SELFPAY ==
[2020-11-05 13:49] LABS: Calculated LDL 117 mg/dL (<100); Cholesterol 206 mg/dL (<200); HDL Cholesterol 79 mg/dL (40-60); Triglyceride 53 mg/dL (<150)
[2020-11-05 14:04] LABS: Folate > 20.0 ng/mL (8.6-20.0)
== END 2020-11-05 02:59 | disposition home or self-care (01) ==
LOC: LBO 02:58
PROVIDERS: PCP Nurse Practitioner; Visit Provider Nurse Practitioner
DX: E53.8 Deficiency of other specified B group vitamins (principal); Z13.220 Encounter for screening for lipoid disorders
CPT/HCPCS: 36415; 80061; 82746

== ENCOUNTER 2021-06-15 18:21 | Outpatient (REF) | payer MEDICAID, SELFPAY ==
[2021-06-20 14:20] LABS: Calprotectin <50.0 mcg/g
== END 2021-06-15 18:22 | disposition home or self-care (01) ==
LOC: LBN 18:21
PROVIDERS: PCP Nurse Practitioner; Visit Provider Nurse Practitioner Adult Health
DX: R19.7 Diarrhea, unspecified (principal)
CPT/HCPCS: 83993

== ENCOUNTER 2021-06-16 04:33 | Outpatient (CLI) | payer MEDICAID, SELFPAY ==
[2021-06-16 09:58] LABS: Abs Immature Grans 0.02 10^3/uL (0.0-0.06); Absolute Basophil Count 0.04 10^3/uL (0.0-0.2); Absolute Eosinophil Count 0.51 10^3/uL (0.0-0.7); Absolute Lymphocyte Count 1.67 10^3/uL (1.2-3.4); Absolute Monocyte Count 0.46 10^3/uL (0.1-0.8); Absolute Neutrophil Count 4.63 10^3/uL (1.2-6.7); Basophils % 0.5; HCT 38.8 % (36.0-46.0); HGB 12.8 g/dL (11.2-15.7); Immature Grans % 0.3; Lymphocytes % 22.8; MCH 28.8 pg (27.0-33.0); MCV 87.4 fL (80-95); MPV 11.6 fL (8.0-11.0); Monocytes % 6.3; Neutrophils % 63.1; Nucleated RBC 0 %; Platelet Count 190 10^3/uL (130-400); RBC 4.44 10^6/uL (3.93-5.22); RDW 14.1 % (11.7-14.6); RDW-SD 45.5 fL; WBC 7.33 10^3/uL (4.4-10.8)
[2021-06-16 10:28] LABS: Hemoglobin A1C 5.4 % (<5.7)
[2021-06-16 11:33] LABS: ALT 13 U/L (14-59); AST 11 U/L (15-37); Albumin 4.4 g/dL (3.4-5.0); Alkaline Phosphatase 65 U/L (46-116); Anion Gap 13.5 mmol/L (3-11); BUN 9 mg/dL (7-18); Bilirubin, Total 0.5 mg/dL (0.2-1.0); CO2 23.5 mmol/L (21.0-32.0); CREATININE 0.9 mg/dL (0.55-1.02); Calcium 8.8 mg/dL (8.5-10.1); Calculated LDL 133 mg/dL (<100); Chloride 106 mmol/L (98-107); Cholesterol 194 mg/dL (<200); Glucose 84 mg/dL (74-106); HDL Cholesterol 49 mg/dL (40-60); Potassium 3.5 mmol/L (3.5-5.1); Sodium 143 mmol/L (136-145); TSH (W/Ref FT4) 1.68 uIU/mL (0.36-3.74); Total Protein 6.9 g/dL (6.4-8.2); Triglyceride 62 mg/dL (<150)
== END 2021-06-16 04:34 | disposition home or self-care (01) ==
LOC: LBO 04:33
PROVIDERS: PCP Nurse Practitioner; Visit Provider Nurse Practitioner
DX: I10 Essential (primary) hypertension (principal); F31.9 Bipolar disorder, unspecified; M79.7 Fibromyalgia; Z13.1 Encounter for screening for diabetes mellitus; Z13.220 Encounter for screening for lipoid disorders; J45.909 Unspecified asthma, uncomplicated
CPT/HCPCS: 36415; 80053; 80061; 83036; 84443; 85025

== ENCOUNTER 2021-11-16 08:16 | Emergency (ER) | payer MEDICAID, SELFPAY ==
[2021-11-16 08:24] VITALS: BP 114/65; PULSE 97; RESP 16; TEMP 36.4; O2SAT 96
--- NOTE | 2021-11-16 08:45 | W.ED.GENAD ---
Discharge Plan Disposition Patient Disposition: HOME Condition: Stable Discharge Details Clinical Impression: Dental abscess, Left facial swelling Primary Care Provider: Asmita Tijerina ED Provider: Nicole Ansari Home Meds and New Rx's Prescriptions: New clindamycin HCl [Cleocin HCl] 300 mg capsule 300 mg PO TID 10 Days Qty: 30 0RF Rx Instructions: Take one capsule three times a day x 10 days. Take with food No Action polyethylene glycol 3350 [Miralax] 17 gram/dose powder 17 g PO DAILY Qty: 510 6RF pregabalin 150 mg capsule 150 mg PO BID Qty: 60 5RF albuterol sulfate [ProAir HFA] 90 mcg/actuation HFA aerosol inhaler 2 puff Inhalation Q4H PRN Qty: 1 12RF Advair HFA 115-21 mcg/actuation HFA aerosol inhaler 2 puff IH BID Qty: 12 12RF folic acid 1 mg tablet 2 mg PO DAILY Qty: 180 3RF prochlorperazine maleate 5 mg tablet See Rx Instructions PO TID PRN (Reason: nausea and vomiting) Qty: 30 2RF Rx Instructions: 5-10 orally three times a day PRN; cyanocobalamin (vitamin B-12) 1,000 mcg/mL solution See Rx Instructions subcut DAILY Qty: 30 0RF Rx Instructions: 1000mcg IM every two weeks for 4 doses and then monthly. omeprazole 40 mg capsule,delayed release(DR/EC) 40 mg PO DAILY duloxetine [Cymbalta] 30 mg capsule,delayed release(DR/EC) 30 mg PO BID Rx Instructions: Per note dated 09/17/21 [facility] cc ergocalciferol (vitamin D2) [Vitamin D2] 1,250 mcg (50,000 unit) capsule 50,000 unit PO QWEEK Qty: 12 3RF Emgality Pen 120 mg/mL pen injector 120 mg subcut ONCE Qty: 1 11RF Discharge Instructions Instructions: Dental Abscess (ED) Additional Instructions: Rinse mouth with warm salt gargles, rinse mouth after eating or drinking anything. Practice good oral hygiene. Take the antibiotic as directed. Take it with food, yogurt or probiotic. Please take Tylenol or Ibuprofen with food every 4-6 hours as needed for pain and swelling. Keep your dental appointment as previously scheduled. Apply ice 3 times a day to the left side of your face. Referrals: Asmita Tijerina NP [Primary Care Provider] - 3 days Medical Decision Making 36-year-old female with left-sided facial swelling and dental caries. Does have follow-up appointment with dentist. Recently on amoxicillin. Patient was given clindamycin instructed on home care and strict follow-up. This text was generated using [employer] dictation system, please disregard any oddities of phrase or misspellings. HPI General Mode of arrival: ambulatory. Date/Time Provider Initiated Documentation: 11/16/21 08:17. Limitations to Documentation: no limitations. Information obtained by: patient, RN notes reviewed and old records reviewed. HPI Narrative: 36-year-old female presents with left sided facial swelling which began this morning. Patient is scheduled for tooth extraction and just finished a course of amoxicillin. She does have poor dentition. Gingival swelling noted to the left upper molar. Swelling extends to her left cheek. She is speaking in full sentences, denies any throat pain. Denies any fever or chills. She does have a past medical history of fibromyalgia, B12 deficiency, IBS, migraine, depression, bipolar disorder and PTSD. Related Data Home Medications Medication Instructions Recorded Confirmed cyanocobalamin (vitamin B-12) See Rx Instructions subcut DAILY 03/03/20 11/16/21 1,000 mcg/mL injection solution #30 mL polyethylene glycol 3350 17 17 g PO DAILY #510 grams 07/16/20 11/16/21 gram/dose oral powder (Miralax) omeprazole 40 mg capsule,delayed 40 mg PO DAILY 04/08/21 11/16/21 release albuterol sulfate 90 mcg/actuation 2 puff inhalation Q4H PRN ##1 05/21/21 11/16/21 aerosol inhaler (ProAir HFA) fluticasone propionate 115 2 puff inhalation BID #12 grams 05/21/21 11/16/21 mcg-salmeterol 21 mcg/actuation HFA inhaler (Advair HFA) folic acid 1 mg tablet 2 mg PO DAILY #180 tabs 05/21/21 11/16/21 pregabalin 150 mg capsule 150 mg PO BID #60 caps 05/21/21 11/16/21 prochlorperazine maleate 5 mg See Rx Instructions PO TID PRN 09/16/21 11/16/21 tablet nausea and vomiting #30 tabs duloxetine 30 mg capsule,delayed 30 mg PO BID 09/21/21 11/16/21 release (Cymbalta) ergocalciferol (vitamin D2) 1,250 50,000 unit PO QWEEK #12 caps 11/02/21 11/16/21 mcg (50,000 unit) capsule (Vitamin D2) galcanezumab-gnlm 120 mg/mL 120 mg subcut ONCE #1 mL 11/03/21 11/16/21 subcutaneous pen injector (Emgality Pen) clindamycin HCl 300 mg capsule 300 mg PO TID 10 days #30 caps 11/16/21 (Cleocin HCl) Previous Rx's Medication Instructions Recorded cyanocobalamin (vitamin B-12) See Rx Instructions subcut DAILY 03/03/20 1,000 mcg/mL injection solution #30 mL polyethylene glycol 3350 17 17 g PO DAILY #510 grams 07/16/20 gram/dose oral powder (Miralax) albuterol sulfate 90 mcg/actuation 2 puff inhalation Q4H PRN ##1 05/21/21 aerosol inhaler (ProAir HFA) fluticasone propionate 115 2 puff inhalation BID #12 grams 05/21/21 mcg-salmeterol 21 mcg/actuation HFA inhaler (Advair HFA) folic acid 1 mg tablet 2 mg PO DAILY #180 tabs 05/21/21 pregabalin 150 mg capsule 150 mg PO BID #60 caps 05/21/21 prochlorperazine maleate 5 mg See Rx Instructions PO TID PRN 09/16/21 tablet nausea and vomiting #30 tabs ergocalciferol (vitamin D2) 1,250 50,000 unit PO QWEEK #12 caps 11/02/21 mcg (50,000 unit) capsule (Vitamin D2) galcanezumab-gnlm 120 mg/mL 120 mg subcut ONCE #1 mL 11/03/21 subcutaneous pen injector (Emgality Pen) clindamycin HCl 300 mg capsule 300 mg PO TID 10 days #30 caps 11/16/21 (Cleocin HCl) Allergies Allergy/AdvReac Type Severity Reaction Status Date / Time latex Allergy Skin Rash Verified 11/16/21 08:27 tetanus and diphtheria Allergy conflict Verified 11/16/21 08:27 toxoids due to latex allergy adhesive AdvReac Skin Rash Verified 11/16/21 08:27 General Stated Complaint: FacialProb REKHA: 4 Review of Systems All systems reviewed & are unremarkable except as noted in HPI and below ENT Ears, Nose, Mouth, and Throat: Reports as per HPI, Denies change in voice, Reports dental pain, Denies dysphagia and Reports facial pain Gastrointestinal Gastrointestinal: Denies dysphagia [facility] All Active Problems (Updated 11/16/21 @ 08:52 by Nicole Ansari NP) Dental abscess (Acute) Left facial swelling (Acute) Oppositional defiant disorder (Acute) Migraine headache without aura (Acute) Functional dyspepsia (Acute) Periumbilical pain (Acute) 06/10/21 [facility] GI F/U, EGD ordered Epigastric pain (Acute) 06/10/21 [facility] GI F/U, EGD ordered Constipation (Acute) IBS (irritable bowel syndrome) (Chronic) Nausea (Acute) Screening for cholesterol level (Acute) Fibromyalgia (Acute) Folic acid deficiency (Acute) Pain in both lower extremities (Acute) Episodic lightheadedness (Acute) B12 deficiency (Acute) Body aches (Acute) Weakness of lower extremity (Acute) Total body pain (Acute) Blood chemistry abnormality (Acute) Feels cold (Acute) Fatigue (Acute) Vitamin D deficiency (Acute) Irritable bowel syndrome with diarrhea (Acute 06/21/19) [facility]/Betsey Depression (Chronic 07/20/16) Bloating (Acute) Routine general medical examination at a health care facility (Acute) Tobacco abuse (Acute) Chronic back pain (Acute) Hand pain (Acute) Joint swelling (Acute) Joint pain (Acute) Chronic abdominal pain (Acute) Dysuria (Chronic) Several evaluations for painful voiding. Negative urine cultures. Response to Pyridium. Vaginitis (Chronic) After treatment with antibiotics for UTI symptoms Restless legs (Acute) Sleep apnea (Acute) Asthma (Chronic 12/10/15) Uses Albuterol MDI. Gastroesophageal reflux disease without esophagitis (Chronic 12/01/15) Chronic pain (Chronic) Headache (Acute) Anxiety (Chronic) Bipolar disorder (Chronic) PTSD (post-traumatic stress disorder) (Acute) Medical History BMI 34.0-34.9,adult Depression Doxepin 75 mg, Toprimate 25mg, sertraline 100 mg daily patient has a counselor, Lissa at [facility]. CHAITANYA (obstructive sleep apnea) Dx 2012 when BMI 36.4 CPAP. 01/03/20 Kim Zafar re-evaluation Pneumonia Rectal polyp [facility] colo 08/24/19 Tobacco use Surgical History section (05/28/16) LTCS. F. 6lb8oz. arrest of descent. KK H/O esophagogastroduodenoscopy (~07/15/21) w/ negative biopsies History of arthroscopy of right knee (~1999) LR, w/o c/o. Ligation of fallopian tube (07/21/16) Laparoscopic bilateral salpingectomy. AOC Reduction mammoplasty S/P bunionectomy (~04/2014) Family History Mother Mental disorder Asthma Depression Father Diabetes Depression Hypertension Social History Smoking/Tobacco Use Status: Current every day Smoking risk assessment performed?: Yes Alcohol Intake: former Details: monthly or less Drug use: Occasionally Substance use type: marijuana Adopted: No Household members: significant other and other Details: boyfriend Immanuel/son Jose Cruz/daughter Emily Housing: apartment Number of Children: 2 Do you need help understanding health information?: Rarely current occupation: Applying for disability. Pets and animals: Yes Pets and animals: other Details: Rabbits Sexually active: Yes Do you think of yourself as: straight/heterosexual Current gender identity: female What is your relationship status?: don't know How often do you talk on the phone with friends or family?: three or more times per week Panel score (0-1 are the most socially isolated patients): 1 What type of physical activity do you participate in: none Seatbelt use: always Drive intox or ride w/intox trencher driver: No Working smoke detector in home: Yes Carbon monox detector in home: Yes Do you feel safe at home: Yes Do you feel safe in your relationship?: Yes Additional Social history: Limited transportation secondary to 's using the car for work. Walks or takes a bus everywhere she goes Female Reproductive History Menstrual control method: permanent sterilization History History 4 Para Hx # Term Pregnancies 2 Multiple births Hx # Pregnancies Ectopic pregnancies AB induced Hx Number of Living Children AB spontaneous Exam HENMT Face and sinus: edema on the left malar area Face images: 1. Swelling Teeth image: 1. Dental caries noted surrounding gingival swelling Course Vital Signs Vital signs: Vital Signs Temperature 36.4 C L 11/16/21 08:24 Pulse 97 H 11/16/21 08:24 Respiratory Rate 16 11/16/21 08:24 Blood Pressure 114/65 11/16/21 08:24 Pulse Oximetry 96 11/16/21 08:24 Temperature 36.4 C L 11/16/21 08:24 Temperature Source Tympanic 11/16/21 08:24 Pulse 97 H 11/16/21 08:24 Respiratory Rate 16 11/16/21 08:24 Respiratory Effort Non-Labored 11/16/21 08:30 Blood Pressure 114/65 11/16/21 08:24 Blood Pressure Position Sitting 11/16/21 08:24 Pulse Oximetry 96 11/16/21 08:24 Oxygen Delivery Method Room Air 11/16/21 08:24 Oxygen Flow Rate 0 11/16/21 08:24 Pain Level 7 11/16/21 08:30 Comment 11/16/21 08:24
[2021-11-16] MEDS: Acetaminophen 500 MG TAB 1000 MG PO (08:58)
[2021-11-16] MEDS: Benzocaine 20% Gel 30 GM JAR MM (08:59)
[2021-11-16] MEDS: Dexamethasone 10 MG/ML VIAL PO (08:59)
[2021-11-16] MEDS: Clindamycin 150 MG CAP 450 MG PO (08:59)
[2021-11-16] MEDS: Clindamycin 150 MG CAP, 12 CAPS/BTL 450 MG PO (09:17)
== END 2021-11-16 09:18 | disposition home or self-care (01) ==
PROVIDERS: Emergency Provider Registered Nurse Emergency; PCP Nurse Practitioner
DX: K04.7 Periapical abscess without sinus (principal); K02.9 Dental caries, unspecified; F17.200 Nicotine dependence, unspecified, uncomplicated
CPT/HCPCS: 99283; 99282; J1100

== ENCOUNTER 2022-02-10 15:56 | Outpatient (REF) | payer MEDICAID, SELFPAY ==
[2022-02-12 02:03] LABS: Influenza A RNA Result Negative (Negative); Influenza B RNA Result Negative (Negative); RSV RNA Result Negative (Negative)
== END 2022-02-10 15:57 | disposition home or self-care (01) ==
LOC: LBN 15:56
PROVIDERS: PCP Nurse Practitioner; Visit Provider Nurse Practitioner
DX: J34.89 Other specified disorders of nose and nasal sinuses (principal); R05.9 Cough, unspecified; R09.89 Other specified symptoms and signs involving the circulatory and respiratory systems
CPT/HCPCS: 87631

== ENCOUNTER 2022-06-03 16:22 | Outpatient (REF) | payer MEDICAID, SELFPAY ==
--- NOTE | 2022-06-03 16:20 | PAPFT_PTH ---
PATIENT: Petty Dutta LOC: [facility] U#:[id number] AGE/SX: 37/F ROOM: RE06/03/[address]: Yasmine Herr MD : [id number] BED: DIS: 06/03/2022 SPEC #: [id number] RECD: 06/03/22 18:07 STATUS: KEIRYIndra RESobeida #: [id number] LASHAWN: 06/03/22 16:[address]: Yasmine Herr DEPT: [facility] Cytology RECD BY: Kim Cevallos ENTERED: 06/03/22 18:08 SP TYPE: PAPFT TERA DR: Asmita Tijerina APRN Tissues: 1 - CX/ENDOCX FOR PAP SMEARS Procedures: PAP THIN PREP/UVM Screening HPV DNA PROBE Comments: [id number]
== END 2022-06-03 16:23 | disposition home or self-care (01) ==
LOC: LBN 16:22
PROVIDERS: PCP Nurse Practitioner; Visit Provider Obstetrics & Gynecology
DX: Z12.4 Encounter for screening for malignant neoplasm of cervix (principal); Z11.51 Encounter for screening for human papillomavirus (HPV)
CPT/HCPCS: 88142; 87624

== ENCOUNTER 2022-06-29 01:42 | Outpatient (CLI) | payer MEDICAID, SELFPAY ==
--- NOTE | 2022-06-29 06:45 | DI.US_ITS ---
Exam(s) US PELVIS TRANSVAGINAL EXAM: US PELVIS TRANSVAGINAL CLINICAL HISTORY: menorrhagia,n92.0. TECHNIQUE: Transabdominal and transvaginal pelvic ultrasound was performed using standard protocol. COMPARISON: No priors for comparison. FINDINGS: UTERUS: Position: Anteverted. Size: 8.4 long by 4.3 AP by 5.9 transverse cm Endometrium: 0.6 cm. Normal for patient's menstrual status. Myometrium: Unremarkable. Cervix: Unremarkable. OVARIES: Right: 3.3 x 2.5 x 1.9 cm Cyst or mass: No suspicious cystic or solid masses. Left: 3.5 x 1.8 x 2.3 cm Cyst or mass: No suspicious cystic or solid masses. DOPPLER: Color: Symmetric and uniform flow to both ovaries. CUL-DE-SAC: Free fluid: There is a small amount of free fluid in the cul-de-sac. This is likely physiologic. Other: None. IMPRESSION: 1. Normal-appearing uterus with endometrial stripe within normal limits. 2. Unremarkable bilateral ovaries. DATA REPOSITORY:
== END 2022-06-29 02:02 ==
LOC: DI 01:42
PROVIDERS: PCP Nurse Practitioner; Visit Provider Obstetrics & Gynecology
DX: N92.0 Excessive and frequent menstruation with regular cycle (principal)
CPT/HCPCS: 76830; 76856

== ENCOUNTER 2022-07-02 01:43 | Outpatient (CLI) | payer MEDICAID, SELFPAY ==
[2022-07-02 11:53] LABS: ALT 14 U/L (14-59); AST 10 U/L (15-37); Alkaline Phosphatase 49 U/L (46-116); Anion Gap 6.1 mmol/L (3-11); BUN 8 mg/dL (7-18); Bilirubin, Total 0.4 mg/dL (0.2-1.0); CO2 30.9 mmol/L (21.0-32.0); CREATININE 0.9 mg/dL (0.55-1.02); Calcium 8.9 mg/dL (8.5-10.1); Calculated LDL 122 mg/dL (<100); Chloride 106 mmol/L (98-107); Cholesterol 183 mg/dL (<200); Glucose 81 mg/dL (74-106); HDL Cholesterol 51 mg/dL (40-60); Potassium 4.1 mmol/L (3.5-5.1); Sodium 143 mmol/L (136-145); Total Protein 6.7 g/dL (6.4-8.2); Triglyceride 54 mg/dL (<150); Vitamin B12 578 pg/mL (193-986)
== END 2022-07-02 01:44 | disposition home or self-care (01) ==
LOC: LBO 01:44
PROVIDERS: PCP Nurse Practitioner; Visit Provider Nurse Practitioner
DX: E53.8 Deficiency of other specified B group vitamins (principal); M79.7 Fibromyalgia; Z13.220 Encounter for screening for lipoid disorders
CPT/HCPCS: 36415; 80053; 80061; 82607

== ENCOUNTER → 2023-08-10 03:46 | Outpatient (CLI) | payer MEDICAID, SELFPAY ==
--- NOTE | 2023-08-10 07:30 | DI.RAD_ITS ---
Exam(s) XR FOOT LT COMPLETE EXAM: XR FOOT LT COMPLETE CLINICAL HISTORY: Left foot pain, M79.672. TECHNIQUE: 2D digital imaging was performed of the left foot. Three images were obtained. AP, obli que and lateral views were obtained. COMPARISON: CR LEFT FOOT COMPLETE from 09/30/2014 FINDINGS: BONES: No acute fracture is present. No bony destructive lesion is seen. There is an enthesophyte at the posterior calcaneus. JOINTS: No dislocation present. Degenerative changes are seen at the 1st MTP joint characterized by j oint space narrowing and osteophytes. There is a small osteophytes seen on the dorsal aspect of the head of the 1st metatarsal bone. SOFT TISSUE: Normal. IMPRESSION: Degenerative changes of the 1st MTP joint and calcaneal spur. DATA REPOSITORY: RADIATION DOSE DELIVERED:
--- NOTE | 2023-08-10 07:30 | DI.RAD_ITS ---
Exam(s) XR FOOT RT COMPLETE EXAM: XR FOOT RT COMPLETE CLINICAL HISTORY: Right foot pain, M79.671. TECHNIQUE: 2D digital imaging was performed of the right foot. Three images were obtained. AP, obl ique and lateral views were obtained. COMPARISON: CR RIGHT FOOT COMPLETE from 11/14/2010 FINDINGS: BONES: No acute fracture is present. No bony destructive lesion is seen. There is a small plantar shelton caneal spur. There is an enthesophyte at the posterior calcaneus. JOINTS: No dislocation present. There are degenerative changes seen at the 1st MTP joint characterize d by joint space narrowing and osteophytes. There is a small osteophyte seen on the dorsal aspect of the head of the 1st metatarsal. There is a well corticated osseous density seen in the dorsal aspec t of the 1st MTP joint which appears old. SOFT TISSUE: Normal. IMPRESSION: Degenerative changes of the 1st MTP joint and calcaneal spurs. DATA REPOSITORY: RADIATION DOSE DELIVERED:
== END ==
PROVIDERS: PCP Nurse Practitioner; Visit Provider Podiatrist
DX: M19.071 Primary osteoarthritis, right ankle and foot; M19.072 Primary osteoarthritis, left ankle and foot
CPT/HCPCS: 73630

== ENCOUNTER 2024-01-11 01:35 | Outpatient (CLI) | payer MEDICAID, SELFPAY ==
[2024-01-11 08:39] LABS: Abs Immature Grans 0.02 10^3/uL (0.0-0.06); Absolute Basophil Count 0.02 10^3/uL (0.0-0.2); Absolute Eosinophil Count 0.25 10^3/uL (0.0-0.7); Absolute Lymphocyte Count 1.94 10^3/uL (1.2-3.4); Absolute Neutrophil Count 3.84 10^3/uL (1.2-6.7); Basophils % 0.3 %; Eosinophils % 3.8 %; HGB 13.5 g/dL (11.2-15.7); Immature Grans % 0.3 %; Lymphocytes % 29.5 %; MCH 30.3 pg (27.0-33.0); MCHC 32.9 % (32.0-36.0); MCV 92 fL (80-95); MPV 11.8 fL (8.0-11.0); Monocytes % 7.6 %; Neutrophils % 58.5 %; Platelet Count 190 10^3/uL (130-400); RBC 4.46 10^6/uL (3.93-5.22); RDW 13.6 % (11.7-14.6); RDW-SD 46.3 fL; WBC 6.57 10^3/uL (4.4-10.8)
[2024-01-11 08:42] LABS: Hemoglobin A1C 5.4 % (<5.7)
[2024-01-11 09:15] LABS: ALT 13 U/L (14-59); AST 11 U/L (15-37); Albumin 3.9 g/dL (3.4-5.0); Alkaline Phosphatase 63 U/L (46-116); Anion Gap 8.6 mmol/L (3-11); BUN 14 mg/dL (7-18); CO2 29.4 mmol/L (21.0-32.0); Calcium 8.9 mg/dL (8.5-10.1); Calculated LDL 97 mg/dL (<100); Chloride 107 mmol/L (98-107); Cholesterol 160 mg/dL (<200); Estimated GFR 73.04 (mL/min/1.73m2); Glucose 91 mg/dL (74-106); HDL Cholesterol 52 mg/dL (40-60); Potassium 4.5 mmol/L (3.5-5.1); Sodium 145 mmol/L (136-145); Total Protein 6.6 g/dL (6.4-8.2); Triglyceride 57 mg/dL (<150); Vitamin B12 497 pg/mL (193-986)
== END 2024-01-11 01:36 | disposition home or self-care (01) ==
LOC: LBO 01:35
PROVIDERS: PCP Nurse Practitioner; Referring Provider Nurse Practitioner; Visit Provider Nurse Practitioner
DX: E53.8 Deficiency of other specified B group vitamins (principal); M79.7 Fibromyalgia; E66.9 Obesity, unspecified
CPT/HCPCS: 36415; 80053; 80061; 82607; 83036; 84443; 85025

== ENCOUNTER 2024-08-10 00:27 | Outpatient (CLI) | payer MEDICAID, SELFPAY ==
--- NOTE | 2024-08-10 11:28 | DI.MAMMO_ITS ---
Exam(s) MAMMO SCREENING EXAM: MAMMO SCREENING CLINICAL HISTORY: screening,z12.39, baseline. TECHNIQUE: Bilateral full field digital CC and MLO mammographic images were obtained with 3D tomosyn thesis and utilizing computer aided detection (CAD). COMPARISON: None. This is a baseline mammogram on this 39-year-old. There has been prior breast re duction surgery. FINDINGS: There has been no significant change in the appearance and distribution of the fibroglandular tissue. There are no new spiculated masses nor malignant appearing microcalcification groups. Mild architectural distortion bilaterally from prior reduction surgery. However, there is no pathologic appearing architectural distortion nor skin thickening-retraction. IMPRESSION: No radiographic evidence of malignancy. BI-RADS Category 1 - Negative Breast Density - Category A - The breast are almost entirely fatty. Breast density Category C or D implies that the patient has dense breast tissue. Dense breast tissue can make it harder to find cancer on a mammogram. Dense breast tissue is also associated with an incr eased risk of breast cancer. This information about the result of the mammogram report was provided to the patient to raise their awareness. Use this report when you speak with the patient about their risks for breast cancer, which includes their family history. At that time, you may recommend additional screening tests (Ultrasoun d or MRI) as these tests may add significant information. A negative radiographic report should not delay biopsy if a dominant or clinically suspicious mass is present. Up to ten percent of cancers are not identified on mammography. A negative report may reinforce clinical impression. Adenosis and dense breasts may obscure an underlying neoplasm. False positive reports average 6 to 10%. Patient will receive a letter notifying them of these results.
== END 2024-08-10 00:47 ==
LOC: DI 00:28
PROVIDERS: PCP Nurse Practitioner; Visit Provider Nurse Practitioner
DX: Z12.31 Encounter for screening mammogram for malignant neoplasm of breast (principal); R92.313 Mammographic fatty tissue density, bilateral breasts
CPT/HCPCS: 77063; 77067

== ENCOUNTER 2024-11-28 01:48 | Outpatient (CLI) | payer MEDICAID, SELFPAY ==
[2024-11-28 17:35] LABS: Vitamin D 25 Total 58 ng/mL (30-100)
== END 2024-11-28 01:49 | disposition home or self-care (01) ==
LOC: LBO 01:48
PROVIDERS: PCP Nurse Practitioner; Visit Provider Nurse Practitioner Family
DX: Z79.899 Other long term (current) drug therapy (principal)
CPT/HCPCS: 36415; 82306

== ENCOUNTER 2025-01-02 17:11 | Outpatient (REF) | payer MEDICAID, SELFPAY | END 2025-01-02 17:12 | disposition home or self-care (01) | LOC: LBN 17:11 | PROVIDERS: PCP Nurse Practitioner; Visit Provider Obstetrics & Gynecology | DX: R10.30 Lower abdominal pain, unspecified (principal); N89.8 Other specified noninflammatory disorders of vagina | CPT/HCPCS: 87480; 87510; 87660 ==